=== PATIENT | female | born 1990 | race Caucasian/White ===

== ENCOUNTER → 2017-07-24 | Outpatient (CLI) | payer OTHER ==
[2017-07-24 11:42] LABS: FOLLICLE STIMULAT HORMONE 11.6 IU/L; PROLACTIN 9.67 ng/mL
== END | disposition home or self-care (01) ==
LOC: C.LAB 10:08
PROVIDERS: ATTEND Obstetrics & Gynecology
DX: Z31.41 Encounter for fertility testing (principal)

== ENCOUNTER → 2018-02-27 | Outpatient (CLI) | payer OTHER | END | disposition home or self-care (01) | LOC: C.LAB 07:50 | PROVIDERS: ATTEND Obstetrics & Gynecology Reproductive Endocrinology | DX: O09.00 Supervision of pregnancy with history of infertility, unspecified trimester (principal); Z3A.00 Weeks of gestation of pregnancy not specified ==

== ENCOUNTER 2018-10-24 06:52 | Inpatient (IN) ==
--- NOTE | 2018-10-24 10:18 | History & Physical Report ---
Date of Service October 24, 2018 Assessment & Plan (1) Normal intrauterine on ultrasound in third trimester: 27yo at 39.2 weeks GA - PROM. 1. Fetus: Reactive NST 2. Labor: PROM. Offered oxytocin. Prefers to allow some time for spontaneous labor. Will recommend augmentation if unchanged at next exam. 3. Vitals: wnl 4. Pain: IV/Epidural PRN (2) PROM (premature rupture of membranes): History of Present Illness Chief Complaint: ROM Primary Care Provider: EDUARDO PCP 28yo at 39.2 weeks GA. Patient presents for LOF at 7:15 am today. Patient denying regular contractions or VB. Normal FM. course complicated by IVF . US on 10/06 had EFW at 53%. Allergies Allergy/AdvReac Type Severity Reaction Status Date / Time No Known Allergies Allergy Unverified 10/24/18 07:10 Home Medications Home Medications Medication Instructions Recorded Confirmed Type vit no.[id number] 1 tab PO DAILY 10/24/18 10/24/18 History [ Vitamin] Patient History Medical History H/O wisdom tooth extraction (~10/13/05) resulting from in vitro fertilization (~01/30/18) Social History Preferred Language: [place] Beliefs That Will Affect Care: None marital status: Current Living Situation: Spouse Other Information That Helps Us Care for You: No Feels Safe at Home: Yes Safety Concerns: Feels Safe At This Time Smoking Status: Never smoker Hx Alcohol Use: No Hx Substance Use: No Physical Exam Vital Signs (Past 24 Hours): Last Vital Signs Temp 99.0 F 10/24/18 07:49 Pulse 73 10/24/18 09:51 Resp 20 10/24/18 09:51 BP 138/90 10/24/18 09:51 Genitourinary: Manual OB Exam: + cervical dilation 1 cm, + cervical effacement 80%, + station -2 and + amniotic fluid (Positive pooling) clear OB Exam Monitor Tracing: + external FHT monitor used, + external uterine monitor used and + category I
[2018-10-24] MEDS ORDERED: LACTATED RINGER'S 1,000 ML IV PRN ×3 (10:48→18:13)
[2018-10-24] MEDS ORDERED: OXYTOCIN 30 UNITS/500 ML BAG IV PRN (10:48)
[2018-10-24] MEDS: LACTATED RINGER'S 1,000 ML IV SCH ×2 (11:27→22:34)
[2018-10-24 11:29] LABS: Hematocrit (blood only) 33.5 % (37-47); Hemoglobin 11.5 g/dL (12.0-16.0); Mean Corpuscular Volume 98.2 fL (80-100); Mean Platelet Volume 11.2 fL (7.4-10.4); Platelet Count 211 K/uL (130-400); RDW Coefficient of Variation 14.3 % (11.5-14.5); Red Blood Count 3.41 M/uL (4.2-5.4); White Blood Count 11.12 K/uL (4.8-10.8)
[2018-10-24] MEDS: OXYTOCIN 30 UNITS/500 ML BAG IV PRN (11:33)
[2018-10-24 11:44] LABS: Creatinine Clr Calc Pharmacy 151.6 ml/min; Est GFR (African American) 143.4; Est GFR (Non-African American) 123.7
[2018-10-24 11:46] LABS: Mean Corpuscular Hgb Conc 34.3 g/dL (32-36)
[2018-10-24 12:02] LABS: Creatinine Urine Random < 13.0 mg/dl; Total Protein Urine Random < 5.0 mg/dl (0-11.9)
[2018-10-24] MEDS ORDERED: BUPIVACAINE 0.25% 30 ML VIAL ONE (18:09)
[2018-10-24] MEDS ORDERED: fentaNYL citrate 100 MCG/2 ML VIAL ONE (18:10)
[2018-10-24] MEDS ORDERED: ePHEDrine sulfate 50 MG/ML AMP ONE (18:10)
[2018-10-24] MEDS ORDERED: fentaNYL 2MCG/ML ROPIV 1.25MG/ML 100 ML BAG EPI ONE (18:10)
[2018-10-24] MEDS ORDERED: DiphenhydrAMINE HCL 50 MG/ML VIAL IV PRN (18:13)
[2018-10-24] MEDS ORDERED: NALOXONE HCL 1 MG in SODIUM CHLORIDE 0.9% 1000ML 1,000 ML IV PRN (18:13)
[2018-10-24] MEDS ORDERED: fentaNYL 2MCG/ML ROPIV 1.25MG/ML 100 ML BAG EPI PRN (18:13)
[2018-10-24] MEDS ORDERED: ePHEDrine sulfate 50 MG/ML AMP IV PRN (18:13)
[2018-10-24] MEDS ORDERED: NALOXONE HCL 0.4 MG/1 ML VIAL/CARP IV PRN (18:13)
[2018-10-24] MEDS ORDERED: ONDANSETRON INJ 2 MG/ML 2 ML VIAL IV PRN (18:13)
[2018-10-24] MEDS ORDERED: NALBUPHINE HCL INJ 10 MG/ML AMP IV PRN (18:13)
--- NOTE | 2018-10-24 18:13 | Anesthesiology Consultation ---
Date of Service October 24, 2018 Assessment & Plan (1) Encounter for pre-operative examination: Chart Review Chart Review: Patient NOT seen in Pre Admission Testing and Acceptable Risk for Labor Epidural Consults Requested none History Height/Weight Height: 5 ft 4 in Weight: 87.18 kg Allergies Allergy/AdvReac Type Severity Reaction Status Date / Time No Known Allergies Allergy Unverified 10/24/18 07:10 Medications Home Medications Medication Instructions Recorded Confirmed Last Taken vit no.[id number] 1 tab PO DAILY 10/24/18 10/24/18 10/23/18 08:00 [ Vitamin] Active Medications Generic Name Dose Route Start Last Admin Trade Name Freq PRN Reason Stop Dose Admin Lactated Ringer's 1,000 mls @ 999 mls/hr 10/24/18 10:48 10/24/18 18:16 Lr IV 11/23/18 10:47 999 mls/hr .Q1H1M PRN Administration (Pre-Anesthesia) Lactated Ringer's 1,000 mls @ 125 mls/hr 10/24/18 11:00 10/24/18 17:58 Lr IV 10/26/18 10:59 999 mls/hr .Q8H DANIEL Infusion Oxytocin 30 units in 500 mls @ 12 mls/hr 10/24/18 10:48 10/24/18 16:20 Pitocin IV 10/26/18 10:47 0.72 units/hr .Q24H PRN 12 mls/hr Labor Induction/Augmentation Titration Protocol 0.72 UNITS/HR Past Medical History Medical History resulting from in vitro fertilization (~01/30/18) Past Surgical History Surgical History H/O wisdom tooth extraction (~10/13/05) Past Anesthesia History No Hx of Anesthesia Complications and No Family Hx of Anesthesia Complications History of PONV No Motion Sickness Screening History of Motion Sickness: No Social History Smoking Status: Never smoker Hx Alcohol Use: No Hx Substance Use: No Physical Exam Vital Signs Last Vital Signs Temp 36.9 C 10/24/18 17:17 Pulse 79 10/24/18 17:17 Resp 20 10/24/18 17:17 BP 148/78 H 10/24/18 17:17 Testing Laboratory Results 10/24/18 11:11 10/24/18 11:11
--- NOTE | 2018-10-24 18:14 | Obstetrical Progress Note ---
Date of Service October 24, 2018 Assessment & Plan (1) Normal intrauterine on ultrasound in third trimester: 27yo at 39.2 weeks GA - PROM. 1. Fetus: Reactive NST 2. Labor:Progressing. Continue pitocin 3. Vitals: Mild range BPs, PIH labs wnl, Denies PIH symptoms 4. Pain: Epidural PRN (2) PROM (premature rupture of membranes): Subjective Contractions significantly increased over past hour. Denies PIH symptoms Physical Exam Genitourinary: OB Exam Abdomen: + vertex, + estimated weight (3000- 3500g) and + regular contractions Manual OB Exam: + cervical dilation 5 cm, + cervical effacement 100%, + station 0 and + amniotic fluid clear OB Exam Monitor Tracing: + external FHT monitor used, + external uterine monitor used, + category I and + normal FHT variability Results & Data Vital Signs (Past 12 Hours) Vital Signs Temp Pulse Resp BP 10/24/18 17:17 98.4 F 79 20 148/78 H 10/24/18 16:19 73 18 144/72 H 10/24/18 15:21 98.2 F 78 18 139/83 10/24/18 14:39 74 143/82 H 10/24/18 14:15 98.1 F 20 10/24/18 13:38 80 18 146/85 H 10/24/18 12:37 98.6 F 77 20 156/82 H 10/24/18 12:23 85 141/88 H 10/24/18 12:08 82 160/86 H 10/24/18 11:52 86 137/91 10/24/18 11:37 80 20 140/89 10/24/18 10:57 98.1 F 75 18 157/94 H 10/24/18 09:51 73 20 138/90 10/24/18 07:52 91 H 135/93 10/24/18 07:49 99.0 F 91 H 20 135/93 10/24/18 06:59 96 H 20 136/91
--- NOTE | 2018-10-24 20:57 | Obstetrical Progress Note ---
Date of Service October 24, 2018 Assessment & Plan (1) PROM (premature rupture of membranes): Doing well. Progressing well. Fetus cat 1. Subjective Doing well. Comfortable with epidural. Physical Exam Genitourinary: OB Exam Abdomen: + regular contractions Manual OB Exam: + cervical dilation (9.5), + cervical effacement 100% and + station + 1 OB Exam Monitor Tracing: + external FHT monitor used, + external uterine monitor used, + category I and + normal FHT variability Results & Data Vital Signs (Past 12 Hours) Vital Signs Temp Pulse Resp BP Pulse Ox 10/24/18 20:49 77 98 10/24/18 20:45 72 143/85 H 10/24/18 20:44 71 97 10/24/18 20:39 78 98 10/24/18 20:34 78 97 10/24/18 20:29 75 18 143/83 H 97 10/24/18 20:24 81 97 10/24/18 20:19 79 97 10/24/18 20:15 18 10/24/18 20:14 82 140/90 97 10/24/18 20:09 80 98 10/24/18 20:04 79 98 10/24/18 20:00 20 10/24/18 19:59 99 H 137/87 100 10/24/18 19:54 72 95 10/24/18 19:49 75 95 10/24/18 19:45 18 10/24/18 19:44 76 147/86 H 96 10/24/18 19:39 73 96 10/24/18 19:34 78 96 10/24/18 19:30 73 20 139/85 10/24/18 19:29 77 97 10/24/18 19:24 76 97 10/24/18 19:19 77 95 10/24/18 19:14 77 144/90 H 96 10/24/18 19:10 80 133/88 10/24/18 19:09 76 96 10/24/18 19:05 98.1 F 18 10/24/18 19:04 74 96 10/24/18 18:59 79 98 10/24/18 18:56 80 147/97 H 10/24/18 18:54 78 99 10/24/18 18:50 83 18 150/92 H 10/24/18 18:49 84 97 10/24/18 18:45 80 141/80 H 10/24/18 18:44 79 98 10/24/18 18:42 77 147/77 H 10/24/18 18:39 83 18 136/78 99 10/24/18 18:36 90 139/79 10/24/18 18:34 82 20 100 10/24/18 18:29 91 H 161/94 H 100 10/24/18 18:25 82 156/89 H 10/24/18 18:24 76 100 10/24/18 18:19 90 156/91 H 100 10/24/18 17:17 98.4 F 79 20 148/78 H 10/24/18 16:19 73 18 144/72 H 10/24/18 15:21 98.2 F 78 18 139/83 10/24/18 14:39 74 143/82 H 10/24/18 14:15 98.1 F 20 10/24/18 13:38 80 18 146/85 H 10/24/18 12:37 98.6 F 77 20 156/82 H 10/24/18 12:23 85 141/88 H 10/24/18 12:08 82 160/86 H 10/24/18 11:52 86 137/91 10/24/18 11:37 80 20 140/89 10/24/18 10:57 98.1 F 75 18 157/94 H 10/24/18 09:51 73 20 138/90
[2018-10-24] MEDS ORDERED: Nursing to Pharmacy Communication ONE (21:48)
[2018-10-25] MEDS ORDERED: CARBOPROST TROMETHAMINE 250 MCG/ML AMPUL ONE (01:00)
[2018-10-25] MEDS: miSOPROStol 200 MCG TAB PR ONE ×2 (01:00→01:51)
[2018-10-25] MEDS: OXYTOCIN 30 UNITS/500 ML BAG IV PRN (01:20)
[2018-10-25] MEDS ORDERED: HYDROCORTISONE ACETATE 25 MG SUPP PR PRN (01:27)
[2018-10-25] MEDS ORDERED: ACETAMINOPHEN 325 MG TAB PO PRN (01:27)
[2018-10-25] MEDS ORDERED: BENZOCAINE 20% AER SPR 82.5 GM CAN EXT PRN (01:27)
[2018-10-25] MEDS ORDERED: SUPERCREAM 0.870% 15 GM JAR EXT PRN (01:27)
[2018-10-25] MEDS ORDERED: CARBOPROST TROMETHAMINE 250 MCG/ML AMPUL IM ONE (01:27)
[2018-10-25] MEDS ORDERED: OXYTOCIN 30 UNITS/500 ML BAG IV PRN (01:27)
[2018-10-25] MEDS: IBUPROFEN 600 MG TAB PO PRN ×3 (03:42→20:23)
[2018-10-25] MEDS ORDERED: miSOPROStol 200 MCG TAB ONE (05:06)
[2018-10-25 07:00] LABS: Creatinine Clr Calc Pharmacy 127.4 ml/min; Est GFR (African American) 135.4; Est GFR (Non-African American) 116.8
--- NOTE | 2018-10-25 07:39 | Anesthesia Procedure Note ---
Date of Service October 25, 2018 Anesthesia Post Epidural Note Vital Signs Vital Signs: Temp Pulse Resp BP Pulse Ox 36.8 C 110 H 18 131/88 97 10/25/18 04:10 10/25/18 04:10 10/25/18 04:10 10/25/18 04:10 10/25/18 04:10 Pain Intensity Bilateral Abdomen: Pain Intensity: 2 Notes Mental Status: alert / awake / arousable and participated in evaluation Patient Amnestic to Procedure: Yes Nausea / Vomiting: adequately controlled Pain: adequately controlled Airway Patency, RR, SpO2: stable & adequate BP & HR: stable & adequate Hydration State: stable & adequate Neuraxial Anesthesia: was administered and sensory block resolved Anesthetic Complications: no major complications apparent and Pt Satisfied with anesthetic care Epidural: Removed without complications and With tip intact
[2018-10-25] MEDS: FERROUS SULFATE 325 MG TAB PO SCH (09:22)
[2018-10-25] MEDS: DOCUSATE SODIUM 100 MG CAP PO SCH ×2 (09:22→20:23)
[2018-10-25] MEDS: PRENATAL VITAMIN 1 TAB PO SCH (09:23)
--- NOTE | 2018-10-25 10:06 | Delivery Summary ---
DATE OF OPERATION: 10/25/2018 PROCEDURE: Normal spontaneous vaginal delivery with bilateral sulcal laceration repair. SURGEON: Dr. Brady Alvarado. PREOPERATIVE DIAGNOSES: 1. Single intrauterine at 39 weeks 3 days gestational age. 2. Premature rupture of membranes. 3. In vitro fertilization . POSTOPERATIVE DIAGNOSES: 1. Single intrauterine at 39 weeks 3 days gestational age. 2. Premature rupture of membranes. 3. In vitro fertilization . 4. Delivered. ESTIMATED BLOOD LOSS: 800 mL. DRAINS: None. FLUIDS: Continuous lactated ringer. URINE OUTPUT: 1000 mL via straight cath after delivery. FINDINGS: There is noted to be a viable female with weight pending and Apgars of 8 and 9 at 1 and 5 minutes respectively. INDICATIONS: The patient is a 28-year-old G1, P0, admitted at 39 weeks, 2 days gestational age with premature rupture of membranes. The patient is given several hours for spontaneous labor to ensue; however, contractions did not increase in intensity or frequency and the patient was recommended to start oxytocin, which she was agreeable to. Oxytocin was started per regular protocol. It was titrated until painful contractions were achieved. At that time, she was rechecked and found to be 5 cm, 100% effaced, 0 station. The patient received an epidural for anesthesia at that time. The patient continued to progress in labor over the next several hours to complete +2. DESCRIPTION OF PROCEDURE: The patient progressed to 10 cm dilated, 100% effaced, positive 2-3 station, pushed over intact perineum with epidural anesthesia and delivered a viable female infant, weight and Apgars as noted above. Head of the delivered in CHAVA position, rest into right transverse. No nuchal cord was noted. Body and shoulders quickly followed. was delivered to the maternal abdomen and a delayed cord clamping was initiated. The was noted to be vigorous soon after delivery and a 1 minute delayed cord clamping was achieved after which the cord was double clamped and cut. Cord blood was then obtained. The bladder was then emptied as it was unable to be done prior to delivery. The attention was then turned to delivery of the placenta which was delivered intact with 3-vessel cord with gentle cord traction. On inspection of the vagina, perineum and cervix, there was noted to be bilateral sulcus with the right sulcus extending into the right labia. There was noted to be increased bleeding. Bimanual massage was performed with improvement; however, after several minutes, the bleeding would ensue. The patient was given 800 mcg of Cytotec per rectum and a dose of Hemabate. Attention was then turned to the vaginal lacerations for repair. These were repaired with 4-0 Vicryl in continuous running locked stitch. At the completion of the case, there was noted to be minimal bleeding. Needle, sponge and instrument counts were correct. Both mother and were stable in the immediate post delivery period. I attest to the content of the Intraoperative Record and any orders documented therein. Any exceptions are noted below. MTDD
[2018-10-25] MEDS ORDERED: BISACODYL 5 MG TABEC PO SCH (20:00)
[2018-10-26] MEDS ORDERED: BISACODYL 10 MG SUPP PR PRN (06:00)
--- NOTE | 2018-10-26 06:33 | Obstetrical Progress Note ---
Date of Service <Lottie Andrea MD - Last Filed: 10/26/18 07:52> October 26, 2018 Assessment & Plan <Lottie Andrea MD - Last Filed: 10/26/18 07:52> (1) Vaginal delivery: 28yo with spontaneous vaginal delivery at 39.2 weeks. IVF. PPD #1 -Pt doing well -Routine care -Encouraged ambulation -Pain control Day #:: 1 Subjective <Lottie Andrea MD - Last Filed: 10/26/18 07:52> Ambulation: ambulating normally Voiding: no voiding problems Diet Tolerance:: regular diet Lochia:: Moderate Feeding Type:: breast feeding Current Pain Level(1-10): 1 Respiratory: no dyspnea Cardiovascular: + edema; no chest pain, no palpitations, no lightheadedness and no calf pain Gastrointestinal: no nausea and no vomiting Genitourinary (female): no dysuria Neurologic: no headache(s) Physical Exam <Lottie Andrea MD - Last Filed: 10/26/18 07:52> Vital Signs (Past 24 Hours) Last Vital Signs Temp 36.4 C L 10/26/18 03:30 Pulse 83 10/26/18 03:30 Resp 18 10/26/18 03:30 BP 130/80 10/25/18 23:15 Pulse Ox 100 10/25/18 16:01 Respiratory normal respiratory effort, lungs clear to auscultation Cardiovascular Rate/Rhythm: regular rate and regular rhythm Extremities: + pedal edema; no calf tenderness Genitourinary OB Exam Abdomen: + fundal height Fundus: + firm Results & Data <Lottie Andrea MD - Last Filed: 10/26/18 07:52> Laboratory Results Laboratory Results - last 24 hr 10/25/18 06:02 Creatinine 0.69 Est Cr Clr Drug Dosing 127.4 Est GFR ( Amer) 135.4 Est GFR (Non-Af Amer) 116.8 AST 41 H ALT 18 Medications Administered Home Medications vit no.[id number] [ Vitamin] 1 tab PO DAILY 10/24/18 [History Confirmed 10/24/18] Active Medications Acetaminophen (Tylenol) 650 mg PO Q6H PRN PRN Reason: Pain/MCLEOD/Fever Stop: 05/24/19 01:26 Benzocaine (Dermoplast Pain Relieving [place]) 1 appln EXT PRN PRN PRN Reason: Perineal Discomfort Stop: 11/24/18 01:26 Last Admin: 10/25/18 03:43 Dose: 82.5 appln Documented by: Bisacodyl (Dulcolax) 10 mg MA DAILY PRN PRN Reason: No BM on 2nd post- day Stop: 11/25/18 05:59 Cocaine HCl (Supercream 0.870%) 1 gm EXT BID PRN PRN Reason: Hemorrhoidal Inflammation Stop: 11/08/18 01:26 Diphtheria/Pertussis/Tetanus Vacc (Adacel) 0.5 ml IM .ONCE ONE Stop: 10/26/18 09:01 Docusate Sodium (Colace) 100 mg PO BID [facility]1983 Stop: 11/24/18 08:59 Last Admin: 10/25/18 20:23 Dose: 100 mg Documented by: Ferrous Sulfate (Feosol) 325 mg PO QAM [facility]1983 Stop: 11/24/18 08:59 Last Admin: 10/25/18 09:22 Dose: 325 mg Documented by: Hydrocortisone (Anusol Hc) 25 mg MA BID PRN PRN Reason: Hemorrhoidal Inflammation Stop: 11/24/18 01:26 Lactated Ringer's (Lr) 1,000 mls @ 999 mls/hr IV .Q1H1M PRN PRN Reason: Tachysystole Stop: 10/26/18 10:47 Lactated Ringer's (Lr) 1,000 mls @ 125 mls/hr IV .Q8H [facility] Stop: 10/26/18 10:59 Last Infusion: 10/25/18 00:50 Dose: Infused Documented by: Oxytocin (Pitocin) 30 units in 500 mls @ 333.333 mls/hr IV .Q1H30M PRN; Protocol PRN Reason: Bleeding Control Stop: 11/23/18 10:47 Oxytocin (Pitocin) 30 units in 500 mls @ 333.333 mls/hr IV .Q1H30M PRN; Protocol PRN Reason: BLEEDING CONTROL Ibuprofen (Motrin) 600 mg PO Q4H PRN PRN Reason: Pain/MCLEOD/Cramping/Fever Stop: 11/24/18 01:26 Last Admin: 10/25/18 20:23 Dose: 600 mg Documented by: Prenat Multivit/Nash/Iron/Folic Ac ( Vitamin) 1 tab PO QAM DANIEL Stop: 11/24/18 08:59 Last Admin: 10/25/18 09:23 Dose: 1 tab Documented by: <Dilcia Taylor MD - Last Filed: 10/26/18 08:07> Co-Signing Physician Notes I have reviewed the resident's note and examined the patient myself, and agree with the note above.
[2018-10-26 07:01] LABS: Hematocrit (blood only) 22.9 % (37-47); Mean Corpuscular Hgb Conc 34.9 g/dL (32-36); Mean Platelet Volume 10.9 fL (7.4-10.4); Platelet Count 182 K/uL (130-400); RDW Coefficient of Variation 14.6 % (11.5-14.5); RDW Standard Deviation 52.6 fL (36.4-46.3); Red Blood Count 2.29 M/uL (4.2-5.4)
[2018-10-26] MEDS: DOCUSATE SODIUM 100 MG CAP PO SCH (08:26)
[2018-10-26] MEDS: PRENATAL VITAMIN 1 TAB PO SCH (08:26)
[2018-10-26] MEDS: FERROUS SULFATE 325 MG TAB PO SCH (08:27)
[2018-10-26] MEDS ORDERED: DIPHTHERIA/TETANUS/PERTUSSIS 0.5 ML SYR/VIAL IM ONE (09:00)
--- OUTSIDE RECORDS SUMMARY | 2018-10-30 15:53 | External Medical Summary | Continuity of Care Document ---
:1990 Author Name Samantha Dill, Provider Address Unavailable Unavailable , Care Team Providers Name Role Phone Christiano Dill, Brady Laughlin [email or web address] EVANGELINA JIMENEZ M.D., FRANCISCO Wu Unavailable Un available Unavailable Unavailable Unavailable Problems resulting from in vitro fertil ization in third trimester (V23.85) (O09.813) Allergies and Adverse Reactions No Known Drug Allergies (Allergy) Medications DHA Complete CAPS Refills: 0 28-0.8 MG Oral Tablet; TAKE 1 TABLET DAILY. Start: 05-Aug-2015 Refills: 0 Procedures Non-stress test Date: 20-Oct-2018 US, Ob, Amniotic fluid index Date: 20-Oct-2018 History of Oral Surgery Tooth Extraction Status: Completed Immunizations Polio On: 1988 0:00 DTaP On: 1988 0:00 Polio On: 1988 0:00 DTaP On: 1988 0:00 DTaP On: 1988 0:00 MMR On: 19-Sep-1989 0:00 Polio On: 09-Jan-1990 0:00 DTaP On: 09-Jan-1990 0:00 HIB On: 09-Jan-1990 0:00 Hepatitis B On: 29-Oct-1991 0:00 Hepatitis B On: 14-Jan-1992 0:00 Hepatitis B On: 17-Jul-1992 0:00 Polio On: 16-Mar-1994 0:00 DTaP On: 16-Mar-1994 0:00 MMR On: 30-Dec-1998 0:00 Td On: 14-May-2004 0:00 HPV (Gardasil) On: 09-Aug-2008 0:00 HPV (Gardasil) On: 30-Oct-2008 0:00 Meningo (Menactra) On: 30-Oct-2008 0:00 Tdap (Adacel) On: 30-Oct-2008 0:00 HPV (Gardasil) On: 07-Feb-2009 0:00 Influenza On: 09-Jun-2012 16:29 Lot #: [id number], [employer] Influenza On: Apr-2013 Varicella Comments:had disease Family History Grandfather Family history of Type 2 Diabetes Mellitus Status: Active Family history of Esophageal Cancer (V16.0) Status: Active Plan of Treatment Planned Observations Planned Goals not documented Results Non-stress test (Pending) Laboratory: In [place] 06-Oct-2018 15:44 Non-Stress Test Reactive Group B Strep/[place] 06-Oct-2018 18:09 GRP B BETA STREP CULTURE - [place] ORDERED P ROCEDURE : GRP B Beta Strep Culture -[place]; Specime nt : Vaginal/Rectal S ource of Specimen: Vaginal/Rectal Group B Strep Culture : No Group B Strep isolated Non-stress test (Pending) Laboratory: [place] 12-Oct-2018 14:39 Non-Stress Test Reactive Non-stress test (Pending) Laboratory: [place] 20-Oct-2018 16:00 Non-Stress Test Reactive Vital Signs 20-Oct-2018 15:05 Systolic 122 mm[Hg] Diastolic 76 mm[Hg] Weight 192.2 lb Height 64.5 in BMI Calculated 32.48 kg/m2 BSA Calculated 1.93 m2 12-Oct-2018 14:18 Systolic 122 mm[Hg] Diastolic 78 mm[Hg] Weight 189.6 lb Height 64.5 in BMI Calculated 32.04 kg/m2 BSA Calculated 1.92 m2 06-Oct-2018 14:43 Systolic 132 mm[Hg] Diastolic 84 mm[Hg] Weight 183.8 lb Height 64.5 in BMI Calculated 31.06 kg/m2 BSA Calculated 1.9 m2 Encounters Appointment; Kevin Babcock M.D. 20-Oct-2018 15:00 Encounter Diagnosis: Problem not documented Appointment; OB SC1, Nonstress Test 20-Oct-2018 14:45 Encounter Diagnosis: Problem not documented Appointment; OBGYN SC1, Ultrasound 20-Oct-2018 14:30 Encounter Diagnosis: Problem not documented Appointment; Brady Alvarado M.D. 12-Oct-2018 15:45 Encounter Diagnosis: Problem not documented Appointment; OB SC1, Nonstress Test 12-Oct-2018 15:00 Encounter Diagnosis: Problem not documented Appointment; OBGYN MARCUS1, Ultrasound 12-Oct-2018 14:00 Encounter Diagnosis: Problem not documented Appointment; Ai Bhat M.D. 06-Oct-2018 16:00 Encounter Diagnosis: Problem not documented Appointment; OB SC1, Nonstress Test 06-Oct-2018 15:00 Encounter Diagnosis: Problem not documented Appointment; OBGYN SC1, Ultrasound 06-Oct-2018 14:30 Encounter Diagnosis: Problem not documented Appointment; Brady Alvarado M.D. 22-Sep-2018 13:30 Encounter Diagnosis: Problem not documented Appointment; Kevin Babcock M.D. 07-Sep-2018 15:00 Encounter Diagnosis: Problem not documented Appointment; OBSUSHANT VELAZQUEZ1, Ultrasound 07-Sep-2018 14:30 Encounter Diagnosis: Problem not documented Appointment; Brady Alvarado M.D. 24-Aug-2018 14:20 Encounter Diagnosis: Problem not documented Appointment; Minal Frazier M.D. 10-Aug-2018 15:10 Encounter Diagnosis: Problem not documented Appointment; OBSUSHANT VELAZQUEZ1, Ultrasound 10-Aug-2018 14:30 Encounter Diagnosis: Problem not documented Appointment; Brady Alvarado M.D. 13-Jul-2018 14:30 Encounter Diagnosis: Problem not documented Appointment; Minal Frazier M.D. 14-Jun-2018 15:30 Encounter Diagnosis: Problem not documented Appointment; OBGYN SC2, Ultrasound 14-Jun-2018 14:30 Encounter Diagnosis: Problem not documented Appointment; Tanvi Perez M.D. 16-May-2018 14:30 Encounter Diagnosis: Problem not documented Appointment; Zeina De La Vega M.D. 02-May-2018 14:30 Encounter Diagnosis: Problem not documented Appointment; OB SC1, Procedure Rm 05-Apr-2018 10:40 Encounter Diagnosis: Problem not documented Appointment; Minal Frazier M.D. 05-Apr-2018 10:40 Encounter Diagnosis: Problem not documented Appointment; OB SC1, Nursing Station 27-Mar-2018 8:45 Encounter Diagnosis: Problem not documented Appointment; Minal Frazier M.D. 30-Nov-2016 8:45 Encounter Diagnosis: Problem not documented
== END 2018-10-26 12:15 | disposition home or self-care (01) | DRG 807 ==
LOC: OPB 06:52 → 4S1 06:56 → 4S2 10-25 03:40

== ENCOUNTER 2021-01-15 02:50 | Inpatient (IN) ==
[2021-01-15] MEDS ORDERED: OXYTOCIN 30 UNITS/500 ML BAG IV PRN ×2 (04:09→05:57)
[2021-01-15] MEDS ORDERED: LACTATED RINGER'S 1,000 ML IV PRN (04:09)
--- NOTE | 2021-01-15 04:18 | Labor Progress Brief Note ---
Date of Service January 15, 2021 Subjective 30yo at 39w1d with call to c/o leaking of fluid per vagina at home early this morning. Had good FM, no ctx, trace vag spotting and pink/white color to vaginal leakage. Was advised to come to L&D for check rupture. On arrival she revealed to RN she had intercourse around midnight. Initial amnisure negative, and patient was counseled on discharge to home. Upon patient attempting to rise from the bed, a sudden and copious gush of meconium-stained fluid occurred, saturating the previously-dry chux. At this point, gross ROM was diagnosed and I was informed of it as I arrived on L&D. Cervix exam then performed and was 4/100/-2/vertex, FHT Cat 1, [place] Q2 at times but irregular, and not obviously painful on observing patient during them. Assessment & Plan (1) resulting from in vitro fertilization: (2) SROM (spontaneous rupture of membranes): Plan: SROM with meconium-stained fluid, likely early labor. Counseled patient on a few hours' exp mgmt and then if no change will need to use pitocin as membranes are now ruptured. Given negative amnisure on admission and the change in the dry chux / vaginal exam to soaked chux / mec fluid, plus the negative amnisure on arrival, will consider official time of rupture to be here at L&D. Suspect the LOF at home was semen/urine. Results & Data ([facility]) Vital Signs (Past 12 Hours) Vital Signs Temp Pulse Resp BP 01/15/21 03:36 98.6 F 18 01/15/21 03:07 69 135/84 Coding Level of Care Code None Diagnoses resulting from in vitro fertilization O09.819 SROM (spontaneous rupture of membranes)
[2021-01-15 04:37] LABS: Hematocrit (blood only) 36.4 % (37-47); Hemoglobin 12.5 g/dL (12.0-16.0); Mean Corpuscular Hemoglobin 35.6 pg (25-34); Mean Corpuscular Hgb Conc 34.3 g/dL (32-36); Mean Corpuscular Volume 103.7 fL (80-100); Mean Platelet Volume 11.1 fL (7.4-10.4); Platelet Count 184 K/uL (130-400); RDW Coefficient of Variation 14.3 % (11.5-14.5); RDW Standard Deviation 53.6 fL (36.4-46.3); Red Blood Count 3.51 M/uL (4.2-5.4); White Blood Count 11.93 K/uL (4.8-10.8)
--- NOTE | 2021-01-15 05:57 | Labor Progress Brief Note ---
Date of Service January 15, 2021 Subjective Contractions feel stronger to the patient. Assessment & Plan (1) SROM (spontaneous rupture of membranes): Plan: No change, therefore recommended pitocin which patient and FOB accept. Admission and Anticipated Discharge Date Admission Date: January 15, 2021 Physical Exam Physical Exam: Cervix unchanged. Mec stained fluid leakage continues. FHT Cat 1 [place] mild / irregular Results & Data ([facility]) Vital Signs (Past 12 Hours) Vital Signs Temp Pulse Resp BP 01/15/21 03:36 98.6 F 18 01/15/21 03:07 69 135/84 Coding Level of Care Code None Diagnoses SROM (spontaneous rupture of membranes)
[2021-01-15] MEDS ORDERED: SODIUM CHLORIDE 0.9% INJ 10 ML VIAL ONE (08:32)
[2021-01-15] MEDS ORDERED: fentaNYL citrate 100 MCG/2 ML VIAL ONE (08:32)
[2021-01-15] MEDS ORDERED: ePHEDrine sulfate 50 MG/ML AMP ONE (08:32)
[2021-01-15] MEDS ORDERED: BUPIVACAINE 0.25% 30 ML VIAL ONE (08:32)
[2021-01-15] MEDS ORDERED: fentaNYL 2MCG/ML ROPIVACAINE 1.25MG/ML 100 ML BAG EPI ONE (08:33)
[2021-01-15] MEDS ORDERED: NALBUPHINE HCL INJ 10 MG/ML AMP IV PRN (08:41)
[2021-01-15] MEDS ORDERED: NALOXONE HCL 0.4 MG/1 ML VIAL/CARP IV PRN (08:41)
[2021-01-15] MEDS ORDERED: ePHEDrine sulfate 50 MG/ML AMP IV PRN (08:41)
[2021-01-15] MEDS ORDERED: fentaNYL 2MCG/ML ROPIVACAINE 1.25MG/ML 100 ML BAG EPI PRN (08:41)
[2021-01-15] MEDS ORDERED: NALOXONE HCL 1 MG in SODIUM CHLORIDE 0.9% 1000ML 1,000 ML IV PRN (08:41)
[2021-01-15] MEDS ORDERED: ONDANSETRON INJ 2 MG/ML 2 ML VIAL IV PRN (08:41)
[2021-01-15] MEDS ORDERED: diphenhydrAMINE 50 MG/ML VIAL IV PRN (08:41)
--- NOTE | 2021-01-15 08:59 | Anesthesiology Consultation ---
Date of Service January 15, 2021 Assessment & Plan (1) Encounter for pre-operative examination: Chart Review Chart Review: Patient NOT seen in Pre Admission Testing and Acceptable Risk for Labor Epidural Consults Requested none History Height/Weight Height: 5 ft 4 in Weight: 78.925 kg Allergies Allergy/AdvReac Type Severity Reaction Status Date / Time No Known Allergies Allergy Verified 01/07/21 14:22 Medications Home Medications Medication Instructions Recorded Confirmed Last Taken vits no.124-ferrous fum 1 tab PO DAILY 10/24/18 01/07/21 10/23/18 08:00 27 mg iron-folic acid 800 mcg tablet ( Vitamin) docosahexaenoic acid 200 mg capsule cap PO 07/16/20 01/07/21 Unknown Active Medications Generic Name Dose Route Start Last Admin Trade Name Freq PRN Reason Stop Dose Admin Lactated Ringer's 1,000 mls @ 125 mls/hr 01/15/21 04:09 01/15/21 08:40 Lr IV 01/17/21 04:08 999 mls/hr .Q8H PRN Infusion L&D Protocol Protocol Oxytocin 30 units in 500 mls @ 3 mls/hr 01/15/21 05:57 01/15/21 08:00 Pitocin IV 01/17/21 05:56 0.3 units/hr .Q24H PRN 5 mls/hr Labor Induction/Augmentation Titration Protocol 0.18 UNITS/HR Past Medical History Medical History History of chicken pox resulting from in vitro fertilization Exercise / Class Metabolic Activity II 4-5 Yardwork/Stairs/Walk up hill Past Family History Family History Denies family history of Ovarian cancer Breast cancer Colorectal cancer Past Surgical History Surgical History H/O wisdom tooth extraction (~10/13/05) Past Anesthesia History No Hx of Anesthesia Complications and No Family Hx of Anesthesia Complications History of PONV No Hx of PONV and No Hx of Motion Sickness Social History Smoking Status: Never smoker Hx Alcohol Use: No Hx Substance Use: No Physical Exam Vital Signs Last Vital Signs Temp 37.0 C 01/15/21 03:36 Pulse 65 01/15/21 08:54 Resp 18 01/15/21 03:36 BP 120/74 01/15/21 07:46 Pulse Ox 99 01/15/21 08:54 Testing Laboratory Results 01/15/21 04:29
[2021-01-15] MEDS ORDERED: ceFAZolin 2000MG 2,000 MG/15 ML SYR IV STA (10:36)
[2021-01-15] MEDS ORDERED: oxyCODONE/ACETAMINOPHEN 5mg/325mg TAB PO PRN (10:36)
[2021-01-15] MEDS ORDERED: ACETAMINOPHEN 325 MG TAB PO PRN (10:36)
--- NOTE | 2021-01-15 10:40 | Delivery Summary ---
Vaginal Delivery Summary Date of Service January 15, 2021 Vaginal Delivery Summary Pre-operative Diagnosis: at 39 1/7 weeks srom Post-operative Diagnosis: same meconium stained fluid Procedure: pitocin augmentation epidural EBL: 300cc Anesthesia: epidural Procedure: The patient pushed for three contractions to deliver a viable female in abimael position. The nose and mouth were bulb suctioned on the perineum, a loose nuchal cord x 1 was reduced, and the rest of the infant was then delivered without difficulty. The baby was vigorous. The nose and mouth were again bulb suctioned and the infant was placed in the maternal abdomen for drying and attention. Cord was clamped and cut at one minute of life. Cord blood and segment obtained. Placenta delivered by manual extraction as there was an area that was adherent in the fundus. A sweep after delivery of the placenta resulted in the removal of a small piece of placenta. A final sweep revealed no appreciable other products noted. Cervix/sulci/rectum/perineum were intact. Hemostasis obtained with dilute pitocin and fundal massage. Apgars were pending. Mother and baby doing well at the end of the delivery. [facility] [place] [facility] [place]ag[place] Delivery Charge Vaginal Delivery Codes: 85463 global code for the antepartum, delivery, and post- Delivery Type Details: [facility]
--- NOTE | 2021-01-15 12:31 | Anesthesia Procedure Note ---
Date of Service January 15, 2021 Anesthesia Post Epidural Note Vital Signs Vital Signs: Temp Pulse Resp BP Pulse Ox 36.7 C 71 20 124/70 100 01/15/21 09:01 01/15/21 12:21 01/15/21 09:59 01/15/21 12:21 01/15/21 10:34 Pain Intensity Bilateral Abdomen: Pain Intensity: 6 Notes Mental Status: alert / awake / arousable and participated in evaluation Patient Amnestic to Procedure: No Nausea / Vomiting: adequately controlled Pain: adequately controlled Airway Patency, RR, SpO2: stable & adequate BP & HR: stable & adequate Hydration State: stable & adequate Neuraxial Anesthesia: was administered and sensory block is resolving Anesthetic Complications: no major complications apparent and Pt Satisfied with anesthetic care Epidural: Removed without complications and With tip intact
[2021-01-15] MEDS: IBUPROFEN 600 MG TAB PO PRN ×2 (17:07→22:08)
[2021-01-15] MEDS ORDERED: BENZOCAINE 20% AER SPR 82.5 GM CAN EXT PRN (17:31)
[2021-01-15] MEDS ORDERED: SUPERCREAM 0.870% 15 GM JAR EXT PRN (21:26)
[2021-01-16] MEDS: IBUPROFEN 600 MG TAB PO PRN ×2 (03:40→08:07)
--- NOTE | 2021-01-16 06:46 | Obstetrical Progress Note ---
Date of Service <Huey Hayes MD - Last Filed: 01/16/21 07:24> January 16, 2021 Assessment & Plan <Huey Hayes MD - Last Filed: 01/16/21 07:24> (1) Encounter for care and examination after delivery: Stable, routine care - pain control as needed - advance diet - encourage ambulation - - GBS-, RI, Rh- - d/c PM (2) resulting from in vitro fertilization: (3) : <Zeina De La Vega MD, FACOG - Last Filed: 01/16/21 07:29> (1) Encounter for care and examination after delivery: (2) resulting from in vitro fertilization: (3) : Subjective <Huey Hayes MD - Last Filed: 01/16/21 07:24> 30 y/o female who is now PPD #1 following spontaneous vaginal delivery at 39.1 weeks. Reports feeling well overall this morning. + abdominal cramping with feeding & 2/10 pain well managed on analgesics. Voiding +. Tolerating meals well and able to ambulate some. + passing gas but no bowel movements.Minimal lochia with improvement this morning. Breast feeding. Review of Systems Denies fever, chills, sweats Denies shortness of breath, difficulty breathing, chest pain, palpitations, chest pressure. Denies breast pain. Denies dysuria. Denies headache or changes in vision Review of Systems All systems reviewed & are unremarkable except as noted in HPI & below Physical Exam <Huey Hayes MD - Last Filed: 01/16/21 07:24> General: Alert, oriented. No acute distress. Cardiac: Regular rate and rhythm, no murmurs/rubs/gallops. Respiratory: Clear to auscultation bilaterally a/p, no wheezes/rales/rhonchi. No increased work of breathing. Symmetrical chest rise. No respiratory distress. Abdomen: Soft, nontender, nondistended. Bowel sounds present. Uterus: Uterine fundus firm, palpable 4 cm below umbilicus. Lower Extremities: No lower extremity edema or swelling. No deep calf pain. Gasper's negative bilaterally.. Constitutional WD/WN, vitals as above Respiratory normal respiratory effort, lungs clear to auscultation Cardiovascular RRR, no murmur, no edema Chest (Breasts) normal inspection/palpation of breasts Gastrointestinal (Abdomen) normal bowel sounds, soft, nontender, no hepatosplenomegaly Musculoskeletal no cyanosis or clubbing, extremities motor strength 5/5 Results & Data ([facility]) <Huey Hayes MD - Last Filed: 01/16/21 07:24> Vital Signs (Past 12 Hours) Vital Signs Temp Pulse Resp BP Pulse Ox 01/16/21 03:25 36.6 C 58 L 16 120/79 98 01/15/21 23:25 37.3 C 62 18 121/78 98 01/15/21 19:35 36.8 C 67 18 127/79 98 <Zeina De La Vega MD, FACOG - Last Filed: 01/16/21 07:29> Co-Signing Physician Notes Resident Physician Supervision Note: I interviewed and examined the patient. Discussed with Dr. Hayes and agree with findings and plan as documented in the note. Any exceptions or clarifications are listed here: Doing well. PLan d/c home. Instructions given. Documented By: Zeina De La Vega MD, FACOG Resident Activity Tracking <Huey Hayes MD - Last Filed: 01/16/21 07:24> Resident Involvement: Resident Care Provided Care Provided: OB Delivery
[2021-01-16 06:50] LABS: Hematocrit (blood only) 36.1 % (37-47); Hemoglobin 12.1 g/dL (12.0-16.0)
[2021-01-16] MEDS ORDERED: PRENATAL VITAMIN 1 TAB PO SCH (08:00)
[2021-01-16] MEDS ORDERED: DOCUSATE SODIUM 100 MG CAP PO SCH (08:00)
== END 2021-01-16 13:47 | disposition home or self-care (01) | DRG 807 ==
LOC: OPB 02:50 → 4S1 02:56 → 4S2 14:07

== ENCOUNTER 2023-10-18 17:24 | Inpatient (IN) ==
[2023-10-18] MEDS ORDERED: OXYTOCIN 30 UNITS/NSS 30 UNITS/500 ML BAG IV PRN (17:40)
[2023-10-18] MEDS ORDERED: LIDOCAINE 1% LOCAL 20 ML VIAL INFIL PRN (17:40)
--- NOTE | 2023-10-18 17:48 | History & Physical Report ---
Date of Service October 18, 2023 Assessment & Plan (1) resulting from in vitro fertilization: Plan: Is a 33-year-old G3, P2 currently at 37 weeks 3 days gestational age presents with premature rupture of membranes for greater than 24 hours. 1. Fetus: Category 1 tracing 2. Labor: Not in labor will start induction with oxytocin. 3. GBS negative 4. Vitals within normal limits (2) PROM (premature rupture of membranes): History of Present Illness Primary Care Provider: JOHN Arreaga is a 33-year-old G3, P2 currently at 37 weeks 3 days gestational age presents with premature rupture of membranes. Reports leakage of fluid since Tuesday evening. Was checked in clinic and was noted to have positive ferning, positive nitrazine and positive pooling. Denying any painful contractions. Denying vaginal bleeding and reporting good movement. complicated by IVF and advanced maternal age. OB Labs: Blood Type O Positive 04/27/23 Antibody Screen NEGATIVE 04/27/23 Hemoglobin 11.7 g/dl (12.0-16.0) L 08/15/23 Hematocrit 34.3 % (37.0-47.0) L 08/15/23 Mean Corpuscular Volume 94.7 fL (80.0-100.0) 04/27/23 Platelet Count 231 K/uL (130-400) 04/27/23 Rubella IgG Antibody Equivocal (Immune) L 04/27/23 Rapid Plasma Reagin Nonreactive (Nonreactive) 04/27/23 Hepatitis B Surface Antigen Neg (Neg) 07/17/20 Hepatitis B Surface Antigen. NON-REACTIVE (NON-REACTIVE) 04/27/23 Hepatitis C Antibody (EIA) NON-REACTIVE (NON-REACTIVE) 04/27/23 HIV (1&2) Ab and P24 Ag, 4th Gener Neg (Neg) 07/17/20 HIV (1&2) Ag and Ab Confirmation NON-REACTIVE (NON-REACTIVE) 04/27/23 Glucose 1 Hour 50 gm Load 106 mg/dl (70-130) 08/15/23 OB Optional Labs: Chlamydia trachomatis RNA Not Detected (NotDetected) 04/27/23 Neisseria gonorrhoeae RNA Not Detected (NotDetected) 04/27/23 Thyroid Stimulating Hormone (TSH) 1.320 uIu/ml (0.300-4.500) 07/24/17 Labs Reviewed: cf/sma neg prev --akh panorama low risk declines msafp Allergies Allergy/AdvReac Type Severity Reaction Status Date / Time No Known Allergies Allergy Verified 10/18/23 14:05 Home Medications Medication Instructions Recorded Confirmed Type vits no.124-ferrous fum 1 tab PO DAILY 10/24/18 10/18/23 History 27 mg iron-folic acid 800 mcg tablet ( Vitamin) Patient History Medical History (Updated 10/18/23 @ 17:51 by Brady Alvarado MD) Endocervical polyp History of chicken pox Surgical History History of in vitro fertilization H/O wisdom tooth extraction (~10/13/05) Family History Grandfather (Paternal) Diabetes Denies family history of Ovarian cancer Prostate cancer Heart disease Myocardial infarction Breast cancer Lung cancer Colorectal cancer Hypertension Stroke Social History (Updated 04/13/23 @ 14:03 by Brenda Cordoba) Smoking Status: Never smoker Second Hand Exposure: No; Do You Dip or Chew Tobacco: No; Hx Alcohol Use: No Hx Substance Use: No Preferred Language: [place]er Visual Impairment: Limited Hearing Ability: Normal Beliefs That Will Affect Care: None marital status: marital status details: Marshall Marroquin (35) [phone] Current Living Situation: Spouse and Family Current Living Situation Comment: lives with spouse, 2 children, dogs current occupational status: employed current occupation: building coord [employer] How many Children do You have: 2 Feels Safe at Home: Yes Childhood Exposure to Second-Hand Smoke: No Diet: regular caffeine: Yes during the past year weight has: remained stable Dental Care, Regularly: Yes Physical Activity Frequency: 3-4 Times per Week Seatbelt Use: always Sunscreen Use: Yes Assistive Devices: Contacts and Glasses Physical Exam Genitourinary: OB Exam Monitor Tracing: + external FHT monitor used, + external uterine monitor used, + category I and + normal FHT variability Confirmed rupture of membranes in clinic. Cervix visually closed/long/high in clinic. Cephalic on ultrasound Coding Level of Care Code None Diagnoses resulting from in vitro fertilization in third trimester O09.813 Trimester: third trimester Premature rupture of membranes with onset of labor more than 24 hours following rupture, unspecified gestational age O42.10 PROM onset of labor timing: onset of labor more than 24 hours following rupture PROM gestational age: unspecified gestational age (1) resulting from in vitro fertilization Trimester: third trimester Qualified Code(s): O09.813 - Supervision of resulting from assisted reproductive technology, third trimester (2) PROM (premature rupture of membranes) PROM onset of labor timing: onset of labor more than 24 hours following rupture PROM gestational age: unspecified gestational age Qualified Code(s): O42.10 - Premature rupture of membranes, onset of labor more than 24 hours following rupture, unspecified weeks of gestation
[2023-10-18 18:09] LABS: Mean Corpuscular Hemoglobin 34.6 pg (25.0-34.0); Mean Corpuscular Hgb Conc 35.3 g/dL (32.0-36.0); Mean Platelet Volume 10.5 fL (9.4-12.4); Platelet Count 280 K/uL (130-400); RDW Coefficient of Variation 13.3 % (11.5-14.5); RDW Standard Deviation 47.4 fL (36.4-46.3); Red Blood Count 3.47 M/uL (4.20-5.40)
[2023-10-18] MEDS: LACTATED RINGER'S 1,000 ML IV PRN (18:20)
[2023-10-18] MEDS: OXYTOCIN 30 UNITS/NSS 30 UNITS/500 ML BAG IV PRN (19:07)
--- NOTE | 2023-10-19 04:49 | Anesthesiology Consultation ---
Date of Service October 19, 2023 Assessment & Plan (1) Encounter for pre-operative examination: Chart Review Chart Review: Acceptable Risk for Labor Epidural History Height/Weight Height: 5 ft 4 in Weight: 86.183 kg Allergies Allergy/AdvReac Type Severity Reaction Status Date / Time No Known Allergies Allergy Verified 10/18/23 14:05 Medications Home Medications Medication Instructions Recorded Confirmed Last Taken vits no.124-ferrous fum 1 tab PO DAILY 10/24/18 10/18/23 10/18/23 27 mg iron-folic acid 800 mcg tablet ( Vitamin) Active Medications Generic Name Dose Route Start Last Admin Trade Name Freq PRN Reason Stop Dose Admin Oxytocin 30 units in 500 mls @ 8 mls/hr 10/18/23 17:40 10/19/23 00:38 Pitocin 30 Units/Nss IV 10/20/23 17:39 0.48 units/hr .Q24H PRN 8 mls/hr Labor Induction/Augmentation Titration Protocol 0.48 UNITS/HR Lactated Ringer's 1,000 mls @ 125 mls/hr 10/18/23 17:40 10/19/23 04:24 Lr IV 10/20/23 17:39 999 mls/hr .Q8H PRN Administration L&D Protocol Protocol Past Medical History Medical History Endocervical polyp History of chicken pox Past Family History Family History Grandfather (Paternal) Diabetes Denies family history of Ovarian cancer Prostate cancer Heart disease Myocardial infarction Breast cancer Lung cancer Colorectal cancer Hypertension Stroke Past Surgical History Surgical History History of in vitro fertilization H/O wisdom tooth extraction (~10/13/05) Social History Smoking Status: Never smoker Do You Dip or Chew Tobacco: No Hx Alcohol Use: No Hx Substance Use: No Physical Exam Vital Signs Last Vital Signs Temp 36.8 C 10/19/23 04:03 Pulse 81 10/19/23 04:46 Resp 18 10/19/23 04:03 BP 129/76 10/19/23 04:19 Pulse Ox 98 10/19/23 04:46 O2 Del Method Room Air 10/18/23 19:00 Testing Laboratory Results 10/18/23:49
[2023-10-19] MEDS: fentANYL 2 MCG/ML BUPIVacaine 0.125%-NSS 100ML BAG ONE (05:12)
[2023-10-19] MEDS ORDERED: ONDANSETRON INJ 2 MG/ML 2 ML VIAL IV PRN (05:14)
[2023-10-19] MEDS ORDERED: NALOXONE HCL 1 MG in SODIUM CHLORIDE 0.9% 1,000 ML IV PRN (05:14)
[2023-10-19] MEDS ORDERED: fentaNYL citrate PF 100 MCG/2 ML VIAL EPI PRN (05:14)
[2023-10-19] MEDS ORDERED: SODIUM CHLORIDE 0.9% PF INJ 10 ML VIAL EPI PRN (05:14)
[2023-10-19] MEDS ORDERED: ROPIVACAINE 0.5% PF 5 MG/ML 20 ML VIAL EPI PRN (05:14)
[2023-10-19] MEDS ORDERED: LIDOCAINE 2% MPF LOCAL 5 ML VIAL EPI PRN (05:14)
[2023-10-19] MEDS ORDERED: ePHEDrine sulfate 50 MG/ML AMP IV PRN (05:14)
[2023-10-19] MEDS ORDERED: NALOXONE HCL 0.4 MG/1 ML VIAL/CARP IV PRN (05:14)
[2023-10-19] MEDS ORDERED: fentANYL 2 MCG/ML BUPIVacaine 0.125%-NSS 100ML BAG EPI PRN (05:14)
[2023-10-19] MEDS ORDERED: BUPIVACAINE 0.25% PF 30 ML VIAL EPI PRN (05:14)
[2023-10-19] MEDS: LIDOCAINE 2%/EPINEPHRINE 1:200,000 20 ML PF ONE (05:16)
[2023-10-19] MEDS: BUPIVACAINE 0.25% PF 30 ML VIAL ONE (05:16)
[2023-10-19] MEDS: fentaNYL citrate PF 100 MCG/2 ML VIAL ONE (05:37)
[2023-10-19] MEDS: BUPIVACAINE 0.25% PF 30 ML VIAL EPI STA (05:38)
[2023-10-19] MEDS: SODIUM CHLORIDE 0.9% PF INJ 10 ML VIAL ONE (05:38)
[2023-10-19] MEDS: LIDOCAINE 2%/EPINEPHRINE 1:200,000 20 ML PF EPI STA (05:39)
[2023-10-19] MEDS: SODIUM CHLORIDE 0.9% PF INJ 10 ML VIAL EPI STA (05:39)
--- NOTE | 2023-10-19 08:29 | Labor Progress Brief Note ---
Date of Service October 19, 2023 Subjective Reason For Note: Routine Evaluation Assessment & Plan (1) PROM (premature rupture of membranes): PROM onset of labor timing: onset of labor more than 24 hours following rupture PROM gestational age: unspecified gestational age Qualified Code(s): O42.10 - Premature rupture of membranes, onset of labor more than 24 h ours following rupture, unspecified weeks of gestation (2) resulting from in vitro fertilization: Plan: Is a 33-year-old G3, P2 currently at 37 weeks 3 days gestational age presents with premature rupture of membranes for greater than 24 hours. 1. Fetus: Category 1 tracing 2. Labor: Minimal blade changer past 4+ hours. IUPC placed. 3. GBS negative 4. Vitals within normal limits Trimester: third trimester Qualified Code(s): O09.813 - Supervision of resulting from assisted reproductive technology, third trimester Admission and Anticipated Discharge Date Admission Date: October 18, 2023 Physical Exam Genitourinary: Manual OB Exam: + cervical dilation 5 cm, + cervical effacement 80%, + station -2 and + amniotic fluid clear OB Exam Monitor Tracing: + external FHT monitor used, + external uterine monitor used, + category I and + normal FHT variability; no late decelerations present and no variable decelerations IUPC placed Results & Data Vital Signs (Past 12 Hours) Vital Signs Temp Pulse Resp BP Pulse Ox 10/19/23 08:21 98 10/19/23 08:21 85 10/19/23 08:21 83 124/67 10/19/23 08:16 95 H 97 10/19/23 08:11 84 97 10/19/23 08:06 82 97 10/19/23 08:01 91 H 97 10/19/23 07:56 97 H 97 10/19/23 07:51 96 H 97 10/19/23 07:46 95 H 98 10/19/23 07:41 86 97 10/19/23 07:36 82 96 10/19/23 07:31 85 96 10/19/23 07:26 85 97 10/19/23 07:21 85 96 10/19/23 07:16 86 96 10/19/23 07:11 98 H 98 10/19/23 07:06 92 H 99 10/19/23 07:04 81 114/64 10/19/23 07:01 84 97 10/19/23 06:56 85 97 10/19/23 06:51 83 97 10/19/23 06:49 92 H 110/63 10/19/23 06:46 74 97 10/19/23 06:41 81 98 10/19/23 06:36 75 98 10/19/23 06:34 73 108/60 10/19/23 06:31 76 98 10/19/23 06:26 79 98 10/19/23 06:21 75 97 10/19/23 06:20 76 109/66 10/19/23 06:16 80 98 10/19/23 06:11 84 98 10/19/23 06:06 80 98 10/19/23 06:04 87 109/63 10/19/23 06:01 72 96 10/19/23 05:56 73 96 10/19/23 05:51 79 97 10/19/23 05:49 82 109/64 10/19/23 05:46 69 96 10/19/23 05:41 74 96 10/19/23 05:36 76 96 10/19/23 05:33 73 107/59 L 10/19/23 05:31 78 96 10/19/23 05:26 76 109/57 L 96 10/19/23 05:24 79 109/58 L 10/19/23 05:22 94 H 107/59 L 10/19/23 05:21 87 97 10/19/23 05:20 86 105/56 L 10/19/23 05:18 83 111/59 L 10/19/23 05:16 81 112/63 97 10/19/23 05:15 18 10/19/23 05:15 36.8 C 18 10/19/23 05:14 95 H 109/60 10/19/23 05:13 97 H 113/66 10/19/23 05:11 85 97 10/19/23 05:10 93 H 99/59 L 10/19/23 05:06 77 99 10/19/23 05:01 79 99 10/19/23 04:56 87 99 10/19/23 04:51 89 97 10/19/23 04:46 81 98 10/19/23 04:41 81 97 10/19/23 04:36 82 97 10/19/23 04:31 82 96 10/19/23 04:26 82 98 10/19/23 04:19 81 129/76 10/19/23 04:03 18 10/19/23 04:03 36.8 C 18 10/19/23 03:19 78 127/79 10/19/23 02:18 76 120/74 10/19/23 02:10 18 10/19/23 02:10 37.0 C 18 10/19/23 01:18 70 122/76 10/19/23 00:18 18 10/19/23 00:18 37.2 C 18 10/19/23 00:17 76 123/72 10/18/23 23:30 18 10/18/23 23:30 36.8 C 18 10/18/23 23:09 75 127/80 10/18/23 21:19 37.2 C 85 18 131/82 Coding Level of Care Code None Diagnoses Premature rupture of membranes with onset of labor more than 24 hours following rupture, unspecified gestational age O42.10 PROM onset of labor timing: onset of labor more than 24 hours following rupture PROM gestational age: unspecified gestational age resulting from in vitro fertilization in third trimester O09.813 Trimester: third trimester
--- NOTE | 2023-10-19 10:03 | Delivery Summary ---
Vaginal Delivery Summary Date of Service October 19, 2023 Vaginal Delivery Summary The patient dilated to complete and pushed to deliver a viable male Apgars 8 and 9 via over intact perineum. Mouth and nose bulb suctioned at perineum. Shoulders and body delivered with ease. Infant was vigorous and crying at . Cord clamped at 30 seconds of life and infant to maternal abdomen where the cord was then doubly clamped and cut. Placenta not delivered spontaneously as cord avulsed. Manual extraction of placenta with sweep of uterus x 2 with no evidence of retained products. Of note infarcted appearance of placenta disc noted, sent to pathology. Three-vessel cord. Hemostasis achieved with dilute pitocin and uterine massage and drainage of the bladder for 300 cc under sterile conditions. Cervix and sulci intact. QBL 582 cc. Mother and baby stable in recovery. Reviewed findings of placenta with partner and patient, showed the disc of placenta to partner. [facility] Vaginal Delivery Charge Delivery Type Details:
[2023-10-19] MEDS ORDERED: oxyCODONE/ACETAMINOPHEN 5mg/325mg TAB PO PRN (10:05)
[2023-10-19] MEDS ORDERED: bisacodyL 10 MG SUPP PR PRN (10:05)
[2023-10-19] MEDS ORDERED: BENZOCAINE 20% SPRY 85 APPLN/85 GM CAN EXT PRN (10:05)
[2023-10-19] MEDS ORDERED: HYDROCORTISONE ACETATE 25 MG SUPP PR PRN (10:05)
[2023-10-19] MEDS: OXYTOCIN 20 UNITS/LR 1,002 ML IV SCH (10:10)
[2023-10-19] MEDS: ceFAZolin 2000MG 2,000 MG/15 ML SYR IV SCH (10:18)
--- NOTE | 2023-10-19 10:40 | Anesthesia Procedure Note ---
Date of Service October 19, 2023 Anesthesia Post Epidural Note Vital Signs Vital Signs: Temp Pulse Resp BP Pulse Ox O2 Del Method 36.8 C 88 18 131/76 100 Room Air 10/19/23 08:38 10/19/23 10:27 10/19/23 09:00 10/19/23 10:27 10/19/23 09:41 10/18/23 19:00 Notes Mental Status: alert / awake / arousable and participated in evaluation Nausea / Vomiting: adequately controlled Pain: adequately controlled Airway Patency, RR, SpO2: stable & adequate BP & HR: stable & adequate Hydration State: stable & adequate Neuraxial Anesthesia: was administered and sensory block is resolving Anesthetic Complications: no major complications apparent and Pt Satisfied with anesthetic care Epidural: Removed without complications and With tip intact
[2023-10-19] MEDS: IBUPROFEN 600 MG TAB PO PRN (12:50)
[2023-10-19] MEDS: ePHEDrine sulfate 50 MG/ML AMP ONE (12:51)
[2023-10-19] MEDS: ACETAMINOPHEN 325 MG TAB PO PRN (13:54)
[2023-10-19] MEDS: fentaNYL citrate PF 100 MCG/2 ML VIAL EPI STA (14:55)
[2023-10-19] MEDS: DOCUSATE SODIUM 100 MG CAP PO SCH (20:31)
[2023-10-19] MEDS: DIPHTHER/TETAN/PERTUS Vaccine (Tdap, Adol/Adult) 0.5mL IM ONE (22:54)
--- NOTE | 2023-10-20 03:35 | Obstetrical Progress Note ---
Date of Service October 20, 2023 Assessment & Plan (1) care and examination: Plan doing well stable. h/h pending. plan dc home this am. f/u 6 wk pp check. reviewed her instructions. breast, rhpos, needs mmr. plan fe bid, reviewed with pt. Day #:: 1 Subjective Ambulation: ambulating normally Voiding: no voiding problems Diet Tolerance:: regular diet Lochia:: Small Feeding Type:: breast feeding no concerns, needs new breast pump Constitutional: + as per Subjective / HPI Physical Exam Constitutional WD/WN, vitals as above Respiratory normal respiratory effort, lungs clear to auscultation Cardiovascular Rate/Rhythm: regular rate and regular rhythm Gastrointestinal (Abdomen) Inspection/Auscultation: abdomen normal to inspection Percussion/Palpation: abdomen soft Fundus firm 2cm down Musculoskeletal nt calves no edema Neurologic grossly normal Psychiatric A+Ox3, euthymic affect Results & Data Vital Signs (Past 12 Hours) Vital Signs Temp Pulse Resp BP O2 Del Method 10/20/23 00:15 98.1 F 83 18 125/83 Room Air 10/19/23 20:00 98.1 F 71 18 119/83 Room Air 10/19/23 16:55 97.9 F 71 18 126/85 Room Air
[2023-10-20] MEDS: MEASLES, MUMPS & RUBELLA VIRUS VACCINE (MMR) 0.5ML VIAL SQ ONE (04:49)
[2023-10-20 06:30] LABS: Hematocrit (blood only) 31.2 % (37.0-47.0); Hemoglobin 10.5 g/dl (12.0-16.0)
[2023-10-20] MEDS: PRENATAL VITAMIN 1 TAB PO SCH (07:44)
--- NOTE | 2023-10-21 05:52 | Obstetrical Progress Note ---
Date of Service October 21, 2023 Assessment & Plan (1) Encounter for care after hospital delivery: Plan 33 yo post- day 2 s/p Continue post care Feels well today. Vital signs stable Encourage ambulation and Hgb stable, rubella immune Pain well controlled with ibuprofen Discharge home today, instruction reviewed with patient Admission and Anticipated Discharge Date Admission Date: October 18, 2023 Supervising Physician Co-Signing Physician Notes Resident Physician Supervision Note: I interviewed and examined the patient. Discussed with Dr. DR. Strong and agree with findings and plan as documented in the note. Any exceptions or clarifications are listed here: Doing well. Plan d/c today. Instructions given. Documented By: Zeina De La Vega MD, FACOG Subjective 33 yo post- day 2 s/p Ambulation: ambulating normally Voiding: no voiding problems Passing Gas:: Yes Diet Tolerance:: regular diet Lochia:: Small Feeding Type:breast feeding Current Pain Level: Minimal Resting comfortably this AM in NAD. Denies MCLEOD, CP, SOB, N/V/D, LE pain/swelling. Review of Systems Review of Systems: as per HPI Physical Exam Physical Exam: General: patient resting comfortably, NAD, non-toxic in appearance, AA&O x 4, answers questions appropriately. Skin: warm, dry, intact HEENT: NC/AT, anicteric sclera, conjunctiva without injection, moist mucus membranes. Heart: +S1/S2, regular, no m/r/g Lungs: equal air entry bilaterally, no rales/rhonchi/wheezes Abd: +BS, soft, NT/ND, uterine fundus firm at umbilicus Ext: warm, no clubbing/cyanosis or edema Neuro: nonfocal, patient AA&O x 4, speech intact, no facial droop, moving all extremities on command. Results & Data Vital Signs (Past 12 Hours) Vital Signs Temp Pulse Resp BP Pulse Ox O2 Del Method 10/20/23 23:30 36.9 C 76 20 118/77 99 Room Air 10/20/23 19:25 36.9 C 81 20 125/85 98 Room Air Resident Activity Tracking Resident Involvement: Resident Care Provided Care Provided: OB Delivery
== END 2023-10-21 10:25 | disposition home or self-care (01) | DRG 807 ==
LOC: OPB 17:24 → 4S1 17:25 → 4E2 10-19 13:00